=== PATIENT | male | born 1945 | race Caucasian/White ===

== ENCOUNTER 2020-06-11 18:02 | Inpatient (IN) | payer OTHER ==
[2020-06-11] VITALS (7 sets, daily range): BP systolic 81–98
[~2020-06-11] VITALS: Ht 167.6 cm; Wt 65.8 kg
[2020-06-11] MEDS ORDERED: PIPERACILLIN/TAZO 3.375 GM in NS 50 ML IV ONE (18:45)
[2020-06-11] MEDS ORDERED: VANCOMYCIN HCL 1,000 MG in NS 250 ML IV ONE (18:45)
[2020-06-11] MEDS ORDERED: PIPERACILLIN/TAZOBACTAM 3.375 GM/VIAL (ZOSYN) IV ONE ×2 (18:53)
[2020-06-11 19:03] LABS: HEMATOCRIT 27.2 % (36-54); HEMOGLOBIN 8.2 g/dL (14.0-18.0); MEAN CORPUSCULAR HEMOGLOBIN 26 pg (27-31); MEAN CORPUSCULAR HGB CONC 30 % (32-36); MEAN CORPUSCULAR VOLUME 87 fL (79.0-98.0); PLATELET COUNT (AUTO) 232 K/uL (130-430); RED BLOOD CELL COUNT(AUTO) 3.11 MIL/uL (4.2-6.2); RED CELL DISTRIBUTION WIDTH 19.6 % (9.0-15.0); WHITE BLOOD COUNT (AUTO) 20.2 K/uL (4.8-10.8)
[2020-06-11] MEDS ORDERED: NACL 0.9% 2,000 ML IV ONE (19:15)
[2020-06-11] MEDS ORDERED: VANCOMYCIN HCL 1000 MG/VIAL IV ONE ×2 (19:24)
[2020-06-11 19:25] LABS: INR 1.1 (0.80-1.20); PROTHROMBIN TIME 11.1 SECS (9.5-12.5)
[2020-06-11] MEDS ORDERED: NOREPINEPHRINE BITARTRATE 4 MG in NS 246 ML IV ONE ×2 (19:30→20:00)
[2020-06-11 19:35] LABS: BAND % (MANUAL) 4 % (0-6); BASOPHILS % (MANUAL) 0 % (0-2); EOSINOPHILS % (MANUAL) 0 % (0-7); LYMPHOCYTES % (MANUAL) 4 % (20-46); MONOCYTES % (MANUAL) 6 % (0-11)
[2020-06-11 19:51] LABS: CHLORIDE 103 mmol/L (98-107); SODIUM SERUM 143 mmol/L (136-145)
[2020-06-11 19:52] LABS: CALCIUM 9.7 mg/dL (8.4-11.0); GLUCOSE 138 mg/dL (70-99)
[2020-06-11 19:53] LABS: ALANINE AMINOTRANSFERASE 22 U/L (12-78); ALBUMIN 1.7 g/dL (3.4-4.8); ASPARTATE AMINOTRANSFERASE 14 U/L (10-37); CREATININE 1.13 mg/dL (0.55-1.30); TOTAL BILIRUBIN 0.5 mg/dL (0.0-1.0); UREA NITROGEN, BLOOD 124 mg/dL (8-21)
[2020-06-11 19:54] LABS: POTASSIUM 5.9 mmol/L (3.5-5.1)
[2020-06-11 19:55] LABS: ANION GAP 3 (5-15)
[2020-06-11] MEDS ORDERED: RILU50TA13 GT (20:08)
[2020-06-11] MEDS ORDERED: FERR220S6 GT (20:08)
[2020-06-11] MEDS ORDERED: INSU100V46 (20:08)
[2020-06-11] MEDS ORDERED: ASA81 GT (20:08)
[2020-06-11] MEDS ORDERED: GUAI100S14 GT (20:08)
[2020-06-11] MEDS ORDERED: LACT1CAP69 GT (20:08)
[2020-06-11] MEDS ORDERED: PRO40 GT (20:08)
[2020-06-11] MEDS ORDERED: ACET325C6 GT (20:08)
[2020-06-11] MEDS ORDERED: MELA1LIQ GT (20:08)
[2020-06-11] MEDS ORDERED: ASCO500T20 GT (20:08)
[2020-06-11] MEDS ORDERED: BUDE0.5A INH (20:08)
[2020-06-11] MEDS ORDERED: NOREPINEPHRINE 4 MG/4 ML VIAL IV ONE (20:10)
[2020-06-11] MEDS: D5NS 1,000 ML IV SCH (20:27)
[2020-06-11] MEDS ORDERED: SODIUM POLYSTYRENE SULFONATE 15 GM/60 ML UDBTL PO ONE (20:30)
[2020-06-11] MEDS ORDERED: SODIUM BICARBONATE 8.4% JECT 50 MEQ/50 ML SYRINGE IVP ONE (20:30)
[2020-06-11] MEDS ORDERED: INSULIN REGULAR, HUMAN 10 UNITS/0.1 ML INJ IVP ONE (20:30)
[2020-06-11] MEDS ORDERED: DEXTROSE 50% JECT 50 ML DISP.SYRIN IVP ONE (20:30)
[2020-06-11] MEDS ORDERED: INSULIN REGULAR, HUMAN 100 UNITS/ML, 10 ML VIAL (humuLIN R) SUBCUT PRN (23:30)
[2020-06-11] MEDS ORDERED: ONDANSETRON HCL 4 MG/2 ML VIAL IVP PRN (23:45)
[2020-06-12] VITALS (34 sets, daily range): BP systolic 89–143
[2020-06-12] MEDS ORDERED: NOREPINEPHRINE BITARTRATE 4 MG in NS 246 ML IV PRN ×2
[2020-06-12 00:18] LABS: INR 1.1 (0.80-1.20); PROTHROMBIN TIME 10.9 SECS (9.5-12.5)
[2020-06-12] MEDS ORDERED: PIPERACILLIN/TAZOBACTAM 3.375 GM/VIAL (ZOSYN) IV ONE (00:31)
[2020-06-12] MEDS: PIPERACILLIN/TAZO 3.375/DEX-IS 50 ML IV SCH ×5 (00:44→23:16)
[2020-06-12] MEDS ORDERED: ZOSYN (PIPERACILLIN/TAZO) 3.375 GM in DEX-ISO (50ml) IV ONE (01:00)
[2020-06-12] MEDS ORDERED: NOREPINEPHRINE 4 MG/4 ML VIAL IV ONE (03:40)
[2020-06-12] MEDS: D5NS 1,000 ML IV SCH ×4 (03:42→23:37)
[2020-06-12 05:39] LABS: CALCIUM 8.6 mg/dL (8.4-11.0); CHLORIDE 106 mmol/L (98-107); CREATININE 1.14 mg/dL (0.55-1.30); GLUCOSE 158 mg/dL (70-99); POTASSIUM 4.9 mmol/L (3.5-5.1); SODIUM SERUM 147 mmol/L (136-145)
[2020-06-12 05:48] LABS: HEMATOCRIT 25.3 % (36-54); HEMOGLOBIN 7.5 g/dL (14.0-18.0); MEAN CORPUSCULAR HEMOGLOBIN 26 pg (27-31); MEAN CORPUSCULAR HGB CONC 29 % (32-36); MEAN CORPUSCULAR VOLUME 88 fL (79.0-98.0); PLATELET COUNT (AUTO) 253 K/uL (130-430); RED BLOOD CELL COUNT(AUTO) 2.87 MIL/uL (4.2-6.2); RED CELL DISTRIBUTION WIDTH 19.5 % (9.0-15.0); WHITE BLOOD COUNT (AUTO) 17.1 K/uL (4.8-10.8)
[2020-06-12 06:01] LABS: ANION GAP < 3 (5-15); UREA NITROGEN, BLOOD 118 mg/dL (8-21)
[2020-06-12 06:14] LABS: BAND % (MANUAL) 8 % (0-6); BASOPHILS % (MANUAL) 0 % (0-2); EOSINOPHILS % (MANUAL) 0 % (0-7); LYMPHOCYTES % (MANUAL) 1 % (20-46); MONOCYTES % (MANUAL) 1 % (0-11)
[2020-06-12 06:15] LABS: METAMYELOCYTES % 4 % (0-0); MYELOCYTES % 3 % (0-0)
[2020-06-12] MEDS: BUDESONIDE 0.5 MG/2 ML AMPUL.NEB INH SCH ×2 (07:10→20:05)
[2020-06-12] MEDS: ASPIRIN 81 MG TAB.CHEW GT SCH (08:28)
[2020-06-12] MEDS: LACTOBACILLUS RHAMNOSUS GG 1 CAP CAPSULE GT SCH ×2 (08:28→20:21)
[2020-06-12] MEDS: FERROUS SULFATE 300 MG/5 ML UDC GT SCH (08:28)
[2020-06-12] MEDS: LANSOPRAZOLE 30 MG CAPSULE.DR GT SCH (08:28)
[2020-06-12] MEDS ORDERED: ASCORBIC ACID 500 MG TABLET GT SCH (09:00)
[2020-06-12] MEDS ORDERED: RILUZOLE 50 MG TABLET GT SCH (09:00)
[2020-06-12] MEDS ORDERED: LACTOBACILLUS ACIDOPHILUS GT SCH (09:00)
[2020-06-12] MEDS ORDERED: NON-FORMULARY MEDICATION (Ferrous Sulfate 7.5 ML) GT SCH (09:00)
[2020-06-12] MEDS ORDERED: ASCORBIC ACID 500 MG TABLET GT ONE (10:15)
[2020-06-12] MEDS: FLUCONAZOLE 100 mg/ NS 50 ML IV SCH (12:48)
[2020-06-12] MEDS: ACETAMINOPHEN 650 MG/20.3 ML UDC GT PRN (18:18)
[2020-06-12] MEDS ORDERED: VANCOMYCIN HCL 1,000 MG in NS 250 ML IV SCH (20:00)
[2020-06-12] MEDS: MELATONIN 3 MG TABLET GT SCH (20:21)
[2020-06-12] MEDS ORDERED: MELATONIN GT SCH (21:00)
[2020-06-12 23:03] LABS: BILIRUBIN,URINE NEGATIVE (NEGATIVE); BLOOD, URINE 3+ (NEGATIVE); CLARITY/URINE TURBID (CLEAR); COLOR,URINE YELLOW (YELLOW); GLUCOSE,URINE NEGATIVE (NEGATIVE); KETONES,URINE NEGATIVE (NEGATIVE); LEUKOCYTE ESTERASE ,URINE 1+ (NEGATIVE); NITRITE, URINE NEGATIVE (NEGATIVE); PH,URINE 5.5 (5.0-8.0); PROTEIN URINE 2+ (NEGATIVE)
[2020-06-13] VITALS (35 sets, daily range): BP systolic 105–146
[2020-06-13 00:05] LABS: BACTERIA,URINE FEW /HPF (None Seen); FINE GRANULAR CASTS,URINE 0-10 /LPF (None Seen); RBC,URINE 20-50 /HPF (0-3)
[2020-06-13] MEDS: D5NS 1,000 ML IV SCH (03:01)
[2020-06-13] MEDS: PIPERACILLIN/TAZO 3.375/DEX-IS 50 ML IV SCH ×3 (05:18→17:21)
[2020-06-13 05:53] LABS: BASOPHILS % (AUTO) 0.1 % (0.0-2.0); EOSINOPHILS % (AUTO) 6.6 % (0.0-4.0); HEMATOCRIT 22.2 % (36-54); LYMPHOCYTES # (AUTO) 0.5 K/uL (1.0-5.5); LYMPHOCYTES % (AUTO) 3.5 % (20.5-51.5); MEAN CORPUSCULAR HEMOGLOBIN 26 pg (27-31); MEAN CORPUSCULAR HGB CONC 31 % (32-36); MEAN CORPUSCULAR VOLUME 83 fL (79.0-98.0); MONOCYTES # (AUTO) 0.3 K/uL (0.0-1.0); MONOCYTES % (AUTO) 1.9 % (1.7-9.3); NEUTROPHILS % (AUTO) 87.9 % (40.0-70.0); PLATELET COUNT (AUTO) 216 K/uL (130-430); RED BLOOD CELL COUNT(AUTO) 2.67 MIL/uL (4.2-6.2); RED CELL DISTRIBUTION WIDTH 19.4 % (9.0-15.0); WHITE BLOOD COUNT (AUTO) 14.7 K/uL (4.8-10.8)
[2020-06-13 05:55] LABS: ANION GAP 5 (5-15); CALCIUM 8.3 mg/dL (8.4-11.0); CHLORIDE 108 mmol/L (98-107); CREATININE 1.07 mg/dL (0.55-1.30); GLUCOSE 153 mg/dL (70-99); POTASSIUM 3.6 mmol/L (3.5-5.1); SODIUM SERUM 152 mmol/L (136-145)
[2020-06-13 05:58] LABS: UREA NITROGEN, BLOOD 114 mg/dL (8-21)
[2020-06-13 06:45] LABS: HEMOGLOBIN 6.9 g/dL (14.0-18.0)
[2020-06-13] MEDS: BUDESONIDE 0.5 MG/2 ML AMPUL.NEB INH SCH ×2 (07:10→20:03)
[2020-06-13] MEDS: FERROUS SULFATE 300 MG/5 ML UDC GT SCH (08:29)
[2020-06-13] MEDS: ASCORBIC ACID 500 MG TABLET GT SCH (08:30)
[2020-06-13] MEDS: ASPIRIN 81 MG TAB.CHEW GT SCH (08:30)
[2020-06-13] MEDS: LACTOBACILLUS RHAMNOSUS GG 1 CAP CAPSULE GT SCH ×2 (08:30→20:26)
[2020-06-13] MEDS: LANSOPRAZOLE 30 MG CAPSULE.DR GT SCH (08:30)
[2020-06-13 10:38] LABS: TOTAL IRON BIND. CAPACITY 165 ug/dL (250-450)
[2020-06-13] MEDS: FLUCONAZOLE 100 mg/ NS 50 ML IV SCH (11:50)
[2020-06-13] MEDS: 0.45% NACL 1,000 ML IV SCH (12:05)
[2020-06-13] MEDS: SOD FERRIC GLUC COMPLEX/SUC 125 MG in NS 100 ML IV SCH (17:46)
[2020-06-13] MEDS: MELATONIN 3 MG TABLET GT SCH (20:27)
[2020-06-14] VITALS (35 sets, daily range): BP systolic 103–126
[2020-06-14] MEDS: PIPERACILLIN/TAZO 3.375/DEX-IS 50 ML IV SCH ×4 (00:11→17:40)
[2020-06-14 05:18] LABS: BASOPHILS % (AUTO) 0.3 % (0.0-2.0); EOSINOPHILS # (AUTO) 0.7 K/uL (0.0-0.4); EOSINOPHILS % (AUTO) 6.6 % (0.0-4.0); HEMATOCRIT 26.1 % (36-54); HEMOGLOBIN 8.4 g/dL (14.0-18.0); LYMPHOCYTES # (AUTO) 0.5 K/uL (1.0-5.5); LYMPHOCYTES % (AUTO) 4.3 % (20.5-51.5); MEAN CORPUSCULAR HEMOGLOBIN 27 pg (27-31); MEAN CORPUSCULAR HGB CONC 32 % (32-36); MEAN CORPUSCULAR VOLUME 83 fL (79.0-98.0); MONOCYTES # (AUTO) 0.2 K/uL (0.0-1.0); MONOCYTES % (AUTO) 2.2 % (1.7-9.3); NEUTROPHILS # (AUTO) 9.7 K/uL (1.8-7.7); NEUTROPHILS % (AUTO) 86.6 % (40.0-70.0); PLATELET COUNT (AUTO) 185 K/uL (130-430); RED BLOOD CELL COUNT(AUTO) 3.14 MIL/uL (4.2-6.2); RED CELL DISTRIBUTION WIDTH 17.9 % (9.0-15.0); WHITE BLOOD COUNT (AUTO) 11.2 K/uL (4.8-10.8)
[2020-06-14 05:27] LABS: ALANINE AMINOTRANSFERASE 20 U/L (12-78); ALBUMIN 1.2 g/dL (3.4-4.8); ANION GAP 3 (5-15); ASPARTATE AMINOTRANSFERASE 15 U/L (10-37); CALCIUM 7.7 mg/dL (8.4-11.0); CHLORIDE 108 mmol/L (98-107); CREATININE 0.94 mg/dL (0.55-1.30); GLUCOSE 102 mg/dL (70-99); POTASSIUM 3.3 mmol/L (3.5-5.1); SODIUM SERUM 149 mmol/L (136-145); TOTAL BILIRUBIN 0.7 mg/dL (0.0-1.0)
[2020-06-14 05:32] LABS: UREA NITROGEN, BLOOD 96 mg/dL (8-21)
[2020-06-14] MEDS ORDERED: POTASSIUM CHLORIDE 20 MEQ/PKT PACKET PO ONE ×2 (07:00→09:45)
[2020-06-14] MEDS: BUDESONIDE 0.5 MG/2 ML AMPUL.NEB INH SCH ×2 (07:38→19:12)
[2020-06-14] MEDS: 0.45% NACL 1,000 ML IV SCH (07:53)
[2020-06-14] MEDS: FERROUS SULFATE 300 MG/5 ML UDC GT SCH (08:08)
[2020-06-14] MEDS: ASCORBIC ACID 500 MG TABLET GT SCH (08:09)
[2020-06-14] MEDS: ASPIRIN 81 MG TAB.CHEW GT SCH (08:09)
[2020-06-14] MEDS: LACTOBACILLUS RHAMNOSUS GG 1 CAP CAPSULE GT SCH ×2 (08:09→21:11)
[2020-06-14] MEDS: LANSOPRAZOLE 30 MG CAPSULE.DR GT SCH (08:10)
[2020-06-14] MEDS ORDERED: FUROSEMIDE 20 MG/2 ML VIAL IVP ONE (09:45)
[2020-06-14] MEDS: D5W 1,000 ML IV SCH (09:50)
[2020-06-14] MEDS: FLUCONAZOLE 100 mg/ NS 50 ML IV SCH (12:28)
[2020-06-14] MEDS: ACETAMINOPHEN 650 MG/20.3 ML UDC GT PRN (16:40)
[2020-06-14] MEDS: SOD FERRIC GLUC COMPLEX/SUC 125 MG in NS 100 ML IV SCH (17:40)
[2020-06-14] MEDS: RILUZOLE 50 MG TABLET GT SCH (21:11)
[2020-06-14] MEDS: MELATONIN 3 MG TABLET GT SCH (21:11)
[2020-06-15] VITALS (35 sets, daily range): BP systolic 103–133
[2020-06-15] MEDS: PIPERACILLIN/TAZO 3.375/DEX-IS 50 ML IV SCH ×5 (00:46→23:55)
[2020-06-15] MEDS: D5W 1,000 ML IV SCH ×2 (05:45→08:56)
[2020-06-15 06:37] LABS: BASOPHILS % (AUTO) 0.1 % (0.0-2.0); EOSINOPHILS # (AUTO) 0.5 K/uL (0.0-0.4); EOSINOPHILS % (AUTO) 3.3 % (0.0-4.0); HEMATOCRIT 27.5 % (36-54); HEMOGLOBIN 8.7 g/dL (14.0-18.0); LYMPHOCYTES # (AUTO) 0.5 K/uL (1.0-5.5); LYMPHOCYTES % (AUTO) 3.2 % (20.5-51.5); MEAN CORPUSCULAR HEMOGLOBIN 27 pg (27-31); MEAN CORPUSCULAR HGB CONC 32 % (32-36); MEAN CORPUSCULAR VOLUME 84 fL (79.0-98.0); MONOCYTES # (AUTO) 0.3 K/uL (0.0-1.0); MONOCYTES % (AUTO) 1.8 % (1.7-9.3); NEUTROPHILS # (AUTO) 13.6 K/uL (1.8-7.7); NEUTROPHILS % (AUTO) 91.6 % (40.0-70.0); PLATELET COUNT (AUTO) 195 K/uL (130-430); RED BLOOD CELL COUNT(AUTO) 3.29 MIL/uL (4.2-6.2); RED CELL DISTRIBUTION WIDTH 18.7 % (9.0-15.0); WHITE BLOOD COUNT (AUTO) 14.8 K/uL (4.8-10.8)
[2020-06-15 07:03] LABS: ALANINE AMINOTRANSFERASE 18 U/L (12-78); ALBUMIN 1.4 g/dL (3.4-4.8); ANION GAP 3 (5-15); ASPARTATE AMINOTRANSFERASE 12 U/L (10-37); CALCIUM 8.6 mg/dL (8.4-11.0); CHLORIDE 110 mmol/L (98-107); CREATININE 0.89 mg/dL (0.55-1.30); GLUCOSE 128 mg/dL (70-99); POTASSIUM 3.8 mmol/L (3.5-5.1); SODIUM SERUM 151 mmol/L (136-145); TOTAL BILIRUBIN 0.9 mg/dL (0.0-1.0); UREA NITROGEN, BLOOD 88 mg/dL (8-21)
[2020-06-15] MEDS: BUDESONIDE 0.5 MG/2 ML AMPUL.NEB INH SCH ×2 (07:38→19:37)
[2020-06-15] MEDS: LACTOBACILLUS RHAMNOSUS GG 1 CAP CAPSULE GT SCH ×2 (08:54→21:04)
[2020-06-15] MEDS: ASCORBIC ACID 500 MG TABLET GT SCH (08:54)
[2020-06-15] MEDS: FERROUS SULFATE 300 MG/5 ML UDC GT SCH (08:54)
[2020-06-15] MEDS: LANSOPRAZOLE 30 MG CAPSULE.DR GT SCH (08:54)
[2020-06-15] MEDS: ASPIRIN 81 MG TAB.CHEW GT SCH (08:54)
[2020-06-15] MEDS: RILUZOLE 50 MG TABLET GT SCH ×2 (08:56→21:05)
[2020-06-15] MEDS: FLUCONAZOLE 100 mg/ NS 50 ML IV SCH (12:07)
[2020-06-15] MEDS: ACETAMINOPHEN 650 MG/20.3 ML UDC GT PRN (12:16)
[2020-06-15] MEDS: SOD FERRIC GLUC COMPLEX/SUC 125 MG in NS 100 ML IV SCH (17:28)
[2020-06-15] MEDS: MELATONIN 3 MG TABLET GT SCH (21:05)
[2020-06-16] VITALS (35 sets, daily range): BP systolic 96–182
[2020-06-16] MEDS ORDERED: NOREPINEPHRINE 4 MG/4 ML VIAL IV ONE (06:15)
[2020-06-16] MEDS: PIPERACILLIN/TAZO 3.375/DEX-IS 50 ML IV SCH ×3 (06:40→17:03)
[2020-06-16] MEDS: BUDESONIDE 0.5 MG/2 ML AMPUL.NEB INH SCH ×2 (07:40→19:26)
[2020-06-16 08:07] LABS: HEMOGLOBIN 9.2 g/dL (14.0-18.0); MEAN CORPUSCULAR HEMOGLOBIN 26 pg (27-31); MEAN CORPUSCULAR HGB CONC 31 % (32-36); MEAN CORPUSCULAR VOLUME 86 fL (79.0-98.0); PLATELET COUNT (AUTO) 230 K/uL (130-430); RED BLOOD CELL COUNT(AUTO) 3.51 MIL/uL (4.2-6.2)
[2020-06-16 08:38] LABS: ALANINE AMINOTRANSFERASE 20 U/L (12-78); ALBUMIN 1.6 g/dL (3.4-4.8); ANION GAP 6 (5-15); ASPARTATE AMINOTRANSFERASE 16 U/L (10-37); CHLORIDE 109 mmol/L (98-107); CREATININE 0.95 mg/dL (0.55-1.30); GLUCOSE 165 mg/dL (70-99); POTASSIUM 3.9 mmol/L (3.5-5.1); SODIUM SERUM 152 mmol/L (136-145); TOTAL BILIRUBIN 0.8 mg/dL (0.0-1.0); UREA NITROGEN, BLOOD 76 mg/dL (8-21)
[2020-06-16 08:52] LABS: WHITE BLOOD COUNT (AUTO) 33.2 K/uL (4.8-10.8)
[2020-06-16] MEDS: ASPIRIN 81 MG TAB.CHEW GT SCH (09:41)
[2020-06-16] MEDS: LANSOPRAZOLE 30 MG CAPSULE.DR GT SCH (09:41)
[2020-06-16] MEDS: ACETAMINOPHEN 650 MG/20.3 ML UDC GT PRN (09:41)
[2020-06-16] MEDS: LACTOBACILLUS RHAMNOSUS GG 1 CAP CAPSULE GT SCH ×2 (09:41→21:06)
[2020-06-16] MEDS: ASCORBIC ACID 500 MG TABLET GT SCH (09:41)
[2020-06-16] MEDS: FERROUS SULFATE 300 MG/5 ML UDC GT SCH (09:41)
[2020-06-16] MEDS: RILUZOLE 50 MG TABLET GT SCH ×2 (09:42→21:06)
[2020-06-16 11:47] LABS: BAND % (MANUAL) 15 % (0-6); LYMPHOCYTES % (MANUAL) 1 % (20-46)
[2020-06-16 11:48] LABS: BASOPHILS % (MANUAL) 0 % (0-2); EOSINOPHILS % (MANUAL) 0 % (0-7); MONOCYTES % (MANUAL) 4 % (0-11)
[2020-06-16] MEDS: FLUCONAZOLE 100 mg/ NS 50 ML IV SCH (12:08)
[2020-06-16] MEDS ORDERED: FUROSEMIDE 40 MG/4 ML VIAL IVP ONE (15:45)
[2020-06-16] MEDS ORDERED: ALBUMIN HUMAN 25% 200 ML IV ONE ×2 (15:45)
[2020-06-16] MEDS ORDERED: FUROSEMIDE 40 MG/4 ML VIAL ONE (15:46)
[2020-06-16] MEDS: SOD FERRIC GLUC COMPLEX/SUC 125 MG in NS 100 ML IV SCH (17:03)
[2020-06-16] MEDS: MELATONIN 3 MG TABLET GT SCH (21:06)
[2020-06-16] MEDS: D5W 1,000 ML IV SCH (21:06)
[2020-06-17] VITALS (36 sets, daily range): BP systolic 113–143
[2020-06-17 06:16] LABS: BASOPHILS % (AUTO) 0.2 % (0.0-2.0); EOSINOPHILS # (AUTO) 0.3 K/uL (0.0-0.4); EOSINOPHILS % (AUTO) 1.8 % (0.0-4.0); HEMATOCRIT 22.1 % (36-54); LYMPHOCYTES # (AUTO) 0.5 K/uL (1.0-5.5); MEAN CORPUSCULAR HEMOGLOBIN 27 pg (27-31); MEAN CORPUSCULAR HGB CONC 31 % (32-36); MEAN CORPUSCULAR VOLUME 85 fL (79.0-98.0); MONOCYTES # (AUTO) 0.3 K/uL (0.0-1.0); PLATELET COUNT (AUTO) 168 K/uL (130-430); RED CELL DISTRIBUTION WIDTH 18.7 % (9.0-15.0); WHITE BLOOD COUNT (AUTO) 17.2 K/uL (4.8-10.8)
[2020-06-17] MEDS: PIPERACILLIN/TAZO 3.375/DEX-IS 50 ML IV SCH ×2 (06:24)
[2020-06-17 06:38] LABS: ALANINE AMINOTRANSFERASE 21 U/L (12-78); ALBUMIN 1.8 g/dL (3.4-4.8); ANION GAP 4 (5-15); ASPARTATE AMINOTRANSFERASE 12 U/L (10-37); CALCIUM 8.1 mg/dL (8.4-11.0); CHLORIDE 103 mmol/L (98-107); CREATININE 0.94 mg/dL (0.55-1.30); GLUCOSE 322 mg/dL (70-99); POTASSIUM 3.7 mmol/L (3.5-5.1); SODIUM SERUM 143 mmol/L (136-145); TOTAL BILIRUBIN 0.8 mg/dL (0.0-1.0); UREA NITROGEN, BLOOD 65 mg/dL (8-21)
[2020-06-17 07:46] LABS: HEMOGLOBIN 6.9 g/dL (14.0-18.0)
[2020-06-17] MEDS: BUDESONIDE 0.5 MG/2 ML AMPUL.NEB INH SCH ×2 (08:12→19:45)
[2020-06-17] MEDS: ASCORBIC ACID 500 MG TABLET GT SCH (08:18)
[2020-06-17] MEDS: RILUZOLE 50 MG TABLET GT SCH ×2 (08:18→20:29)
[2020-06-17] MEDS: FERROUS SULFATE 300 MG/5 ML UDC GT SCH (08:18)
[2020-06-17] MEDS: LANSOPRAZOLE 30 MG CAPSULE.DR GT SCH (08:18)
[2020-06-17] MEDS: ASPIRIN 81 MG TAB.CHEW GT SCH (08:18)
[2020-06-17] MEDS: LACTOBACILLUS RHAMNOSUS GG 1 CAP CAPSULE GT SCH ×2 (08:18→20:29)
[2020-06-17] MEDS ORDERED: TOBRAMYCIN 300MG/5ML INH AMPUL.NEB INH ONE (10:00)
[2020-06-17] MEDS: LEVOFLOXACIN 250 MG/D5W 50 ML IV SCH (11:32)
[2020-06-17] MEDS: FLUCONAZOLE 100 mg/ NS 50 ML IV SCH (12:45)
[2020-06-17] MEDS: SOD FERRIC GLUC COMPLEX/SUC 125 MG in NS 100 ML IV SCH (17:03)
[2020-06-17] MEDS: D5W 1,000 ML IV SCH (17:04)
[2020-06-17] MEDS: TOBRAMYCIN 300MG/5ML INH AMPUL.NEB INH SCH (19:44)
[2020-06-17] MEDS: MELATONIN 3 MG TABLET GT SCH (20:29)
[2020-06-18] VITALS (36 sets, daily range): BP systolic 107–153
[2020-06-18 06:15] LABS: BASOPHILS % (AUTO) 0.3 % (0.0-2.0); EOSINOPHILS # (AUTO) 0.3 K/uL (0.0-0.4); EOSINOPHILS % (AUTO) 2.2 % (0.0-4.0); HEMATOCRIT 27.3 % (36-54); HEMOGLOBIN 8.8 g/dL (14.0-18.0); LYMPHOCYTES # (AUTO) 0.6 K/uL (1.0-5.5); LYMPHOCYTES % (AUTO) 4.1 % (20.5-51.5); MEAN CORPUSCULAR HEMOGLOBIN 28 pg (27-31); MEAN CORPUSCULAR HGB CONC 32 % (32-36); MEAN CORPUSCULAR VOLUME 86 fL (79.0-98.0); MONOCYTES # (AUTO) 0.3 K/uL (0.0-1.0); MONOCYTES % (AUTO) 2.2 % (1.7-9.3); NEUTROPHILS # (AUTO) 13.2 K/uL (1.8-7.7); NEUTROPHILS % (AUTO) 91.2 % (40.0-70.0); PLATELET COUNT (AUTO) 165 K/uL (130-430); RED BLOOD CELL COUNT(AUTO) 3.19 MIL/uL (4.2-6.2); RED CELL DISTRIBUTION WIDTH 17.4 % (9.0-15.0); WHITE BLOOD COUNT (AUTO) 14.4 K/uL (4.8-10.8)
[2020-06-18] MEDS: BUDESONIDE 0.5 MG/2 ML AMPUL.NEB INH SCH ×2 (07:16→19:21)
[2020-06-18 07:37] LABS: ANION GAP 1 (5-15); CALCIUM 7.9 mg/dL (8.4-11.0); CHLORIDE 101 mmol/L (98-107); SODIUM SERUM 137 mmol/L (136-145); UREA NITROGEN, BLOOD 57 mg/dL (8-21)
[2020-06-18] MEDS: TOBRAMYCIN 300MG/5ML INH AMPUL.NEB INH SCH ×2 (07:38→19:21)
[2020-06-18 08:02] LABS: GLUCOSE 405 mg/dL (70-99)
[2020-06-18] MEDS: FERROUS SULFATE 300 MG/5 ML UDC GT SCH (09:28)
[2020-06-18] MEDS: ASCORBIC ACID 500 MG TABLET GT SCH (09:28)
[2020-06-18] MEDS: LANSOPRAZOLE 30 MG CAPSULE.DR GT SCH (09:28)
[2020-06-18] MEDS: RILUZOLE 50 MG TABLET GT SCH ×2 (09:28→20:34)
[2020-06-18] MEDS: LACTOBACILLUS RHAMNOSUS GG 1 CAP CAPSULE GT SCH ×2 (09:28→20:34)
[2020-06-18] MEDS: ASPIRIN 81 MG TAB.CHEW GT SCH (09:28)
[2020-06-18] MEDS: LEVOFLOXACIN 250 MG/D5W 50 ML IV SCH (09:29)
[2020-06-18] MEDS: FLUCONAZOLE 100 mg/ NS 50 ML IV SCH (11:53)
[2020-06-18] MEDS: D5W 1,000 ML IV SCH (15:22)
[2020-06-18] MEDS: SOD FERRIC GLUC COMPLEX/SUC 125 MG in NS 100 ML IV SCH (17:55)
[2020-06-18] MEDS: MELATONIN 3 MG TABLET GT SCH (20:34)
[2020-06-18] MEDS: NACL 0.9% 1,000 ML IV SCH (20:57)
[2020-06-18] MEDS: INSULIN NPH 100 UNITS/ML 10 ML VIAL SUBCUT SCH (21:01)
[2020-06-19] VITALS (35 sets, daily range): BP systolic 115–143
[2020-06-19] MEDS: INSULIN NPH 100 UNITS/ML 10 ML VIAL SUBCUT SCH ×2 (06:29→17:00)
[2020-06-19] MEDS: BUDESONIDE 0.5 MG/2 ML AMPUL.NEB INH SCH ×2 (07:11→20:03)
[2020-06-19] MEDS: TOBRAMYCIN 300MG/5ML INH AMPUL.NEB INH SCH ×2 (08:05→20:03)
[2020-06-19 08:09] LABS: BASOPHILS # (AUTO) 0.1 K/uL (0.0-0.2); BASOPHILS % (AUTO) 0.5 % (0.0-2.0); EOSINOPHILS # (AUTO) 0.3 K/uL (0.0-0.4); EOSINOPHILS % (AUTO) 2.6 % (0.0-4.0); HEMATOCRIT 25.9 % (36-54); HEMOGLOBIN 8.4 g/dL (14.0-18.0); LYMPHOCYTES # (AUTO) 0.5 K/uL (1.0-5.5); LYMPHOCYTES % (AUTO) 4.6 % (20.5-51.5); MEAN CORPUSCULAR HEMOGLOBIN 28 pg (27-31); MEAN CORPUSCULAR HGB CONC 32 % (32-36); MEAN CORPUSCULAR VOLUME 86 fL (79.0-98.0); MONOCYTES # (AUTO) 0.3 K/uL (0.0-1.0); NEUTROPHILS # (AUTO) 9.8 K/uL (1.8-7.7); NEUTROPHILS % (AUTO) 89.3 % (40.0-70.0); PLATELET COUNT (AUTO) 177 K/uL (130-430); RED BLOOD CELL COUNT(AUTO) 3.02 MIL/uL (4.2-6.2); RED CELL DISTRIBUTION WIDTH 17.8 % (9.0-15.0)
[2020-06-19 08:24] LABS: ANION GAP 4 (5-15); CALCIUM 8.5 mg/dL (8.4-11.0); CHLORIDE 107 mmol/L (98-107); CREATININE 0.75 mg/dL (0.55-1.30); GLUCOSE 103 mg/dL (70-99); POTASSIUM 4.7 mmol/L (3.5-5.1); SODIUM SERUM 145 mmol/L (136-145); UREA NITROGEN, BLOOD 56 mg/dL (8-21)
[2020-06-19] MEDS: LEVOFLOXACIN 250 MG/D5W 50 ML IV SCH (09:29)
[2020-06-19] MEDS: FERROUS SULFATE 300 MG/5 ML UDC GT SCH (09:29)
[2020-06-19] MEDS: ASPIRIN 81 MG TAB.CHEW GT SCH (09:29)
[2020-06-19] MEDS: LACTOBACILLUS RHAMNOSUS GG 1 CAP CAPSULE GT SCH ×2 (09:29→20:29)
[2020-06-19] MEDS: LANSOPRAZOLE 30 MG CAPSULE.DR GT SCH (09:29)
[2020-06-19] MEDS: ASCORBIC ACID 500 MG TABLET GT SCH (09:29)
[2020-06-19] MEDS: RILUZOLE 50 MG TABLET GT SCH ×2 (09:30→20:28)
[2020-06-19] MEDS: NACL 0.9% 1,000 ML IV SCH (13:56)
[2020-06-19] MEDS: SOD FERRIC GLUC COMPLEX/SUC 125 MG in NS 100 ML IV SCH (17:18)
[2020-06-19] MEDS: MELATONIN 3 MG TABLET GT SCH (20:28)
[2020-06-20] VITALS (35 sets, daily range): BP systolic 104–151
[2020-06-20] MEDS: NACL 0.9% 1,000 ML IV SCH ×2 (05:12→22:57)
[2020-06-20] MEDS: INSULIN NPH 100 UNITS/ML 10 ML VIAL SUBCUT SCH ×2 (06:08→17:00)
[2020-06-20 06:48] LABS: BASOPHILS # (AUTO) 0.1 K/uL (0.0-0.2); BASOPHILS % (AUTO) 1.1 % (0.0-2.0); EOSINOPHILS # (AUTO) 0.3 K/uL (0.0-0.4); EOSINOPHILS % (AUTO) 3.1 % (0.0-4.0); HEMATOCRIT 24.4 % (36-54); HEMOGLOBIN 7.9 g/dL (14.0-18.0); LYMPHOCYTES # (AUTO) 0.6 K/uL (1.0-5.5); LYMPHOCYTES % (AUTO) 7.5 % (20.5-51.5); MEAN CORPUSCULAR HEMOGLOBIN 29 pg (27-31); MEAN CORPUSCULAR HGB CONC 32 % (32-36); MEAN CORPUSCULAR VOLUME 88 fL (79.0-98.0); MONOCYTES # (AUTO) 0.4 K/uL (0.0-1.0); MONOCYTES % (AUTO) 4.5 % (1.7-9.3); NEUTROPHILS # (AUTO) 7.2 K/uL (1.8-7.7); NEUTROPHILS % (AUTO) 83.8 % (40.0-70.0); PLATELET COUNT (AUTO) 193 K/uL (130-430); RED BLOOD CELL COUNT(AUTO) 2.76 MIL/uL (4.2-6.2); RED CELL DISTRIBUTION WIDTH 18.4 % (9.0-15.0); WHITE BLOOD COUNT (AUTO) 8.5 K/uL (4.8-10.8)
[2020-06-20 07:11] LABS: ANION GAP 5 (5-15); CALCIUM 7.9 mg/dL (8.4-11.0); CHLORIDE 110 mmol/L (98-107); CREATININE 0.69 mg/dL (0.55-1.30); GLUCOSE 107 mg/dL (70-99); POTASSIUM 4.4 mmol/L (3.5-5.1); SODIUM SERUM 146 mmol/L (136-145); UREA NITROGEN, BLOOD 47 mg/dL (8-21)
[2020-06-20] MEDS: BUDESONIDE 0.5 MG/2 ML AMPUL.NEB INH SCH ×2 (07:14→19:26)
[2020-06-20] MEDS: TOBRAMYCIN 300MG/5ML INH AMPUL.NEB INH SCH ×2 (07:15→19:40)
[2020-06-20] MEDS: LEVOFLOXACIN 250 MG/D5W 50 ML IV SCH (09:36)
[2020-06-20] MEDS: LACTOBACILLUS RHAMNOSUS GG 1 CAP CAPSULE GT SCH ×2 (09:37→21:00)
[2020-06-20] MEDS: FERROUS SULFATE 300 MG/5 ML UDC GT SCH (09:37)
[2020-06-20] MEDS: ASPIRIN 81 MG TAB.CHEW GT SCH (09:37)
[2020-06-20] MEDS: RILUZOLE 50 MG TABLET GT SCH ×2 (09:37→21:00)
[2020-06-20] MEDS: ASCORBIC ACID 500 MG TABLET GT SCH (09:37)
[2020-06-20] MEDS: LANSOPRAZOLE 30 MG CAPSULE.DR GT SCH (09:37)
[2020-06-20] MEDS ORDERED: SOD FERRIC GLUC COMPLEX/SUC 125 MG in NS 100 ML IV SCH (17:30)
[2020-06-20] MEDS: SOD FERRIC GLUC COMPLEX/SUC 125 MG in NS 100 ML IV SCH (17:44)
[2020-06-20] MEDS: MELATONIN 3 MG TABLET GT SCH (21:00)
[2020-06-21] VITALS (14 sets, daily range): BP systolic 125–158
[2020-06-21] MEDS: INSULIN NPH 100 UNITS/ML 10 ML VIAL SUBCUT SCH (06:41)
[2020-06-21] MEDS: BUDESONIDE 0.5 MG/2 ML AMPUL.NEB INH SCH (07:44)
[2020-06-21] MEDS: TOBRAMYCIN 300MG/5ML INH AMPUL.NEB INH SCH (07:44)
[2020-06-21 08:13] LABS: BASOPHILS # (AUTO) 0.1 K/uL (0.0-0.2); BASOPHILS % (AUTO) 1.2 % (0.0-2.0); EOSINOPHILS # (AUTO) 0.3 K/uL (0.0-0.4); EOSINOPHILS % (AUTO) 3.1 % (0.0-4.0); HEMATOCRIT 25.4 % (36-54); HEMOGLOBIN 8.2 g/dL (14.0-18.0); LYMPHOCYTES # (AUTO) 0.6 K/uL (1.0-5.5); LYMPHOCYTES % (AUTO) 6.9 % (20.5-51.5); MEAN CORPUSCULAR HEMOGLOBIN 28 pg (27-31); MEAN CORPUSCULAR HGB CONC 32 % (32-36); MEAN CORPUSCULAR VOLUME 88 fL (79.0-98.0); MONOCYTES # (AUTO) 0.5 K/uL (0.0-1.0); MONOCYTES % (AUTO) 5.8 % (1.7-9.3); PLATELET COUNT (AUTO) 196 K/uL (130-430); RED CELL DISTRIBUTION WIDTH 18.2 % (9.0-15.0); WHITE BLOOD COUNT (AUTO) 8.5 K/uL (4.8-10.8)
[2020-06-21 08:50] LABS: ALANINE AMINOTRANSFERASE 37 U/L (12-78); ALBUMIN 1.6 g/dL (3.4-4.8); ANION GAP 4 (5-15); ASPARTATE AMINOTRANSFERASE 19 U/L (10-37); CALCIUM 8.5 mg/dL (8.4-11.0); CHLORIDE 110 mmol/L (98-107); CREATININE 0.71 mg/dL (0.55-1.30); GLUCOSE 114 mg/dL (70-99); SODIUM SERUM 145 mmol/L (136-145); TOTAL BILIRUBIN 0.6 mg/dL (0.0-1.0); UREA NITROGEN, BLOOD 44 mg/dL (8-21)
[2020-06-21] MEDS: ASPIRIN 81 MG TAB.CHEW GT SCH (09:51)
[2020-06-21] MEDS: LACTOBACILLUS RHAMNOSUS GG 1 CAP CAPSULE GT SCH (09:51)
[2020-06-21] MEDS: LANSOPRAZOLE 30 MG CAPSULE.DR GT SCH (09:51)
[2020-06-21] MEDS: ASCORBIC ACID 500 MG TABLET GT SCH (09:51)
[2020-06-21] MEDS: LEVOFLOXACIN 250 MG/D5W 50 ML IV SCH (09:51)
[2020-06-21] MEDS: FERROUS SULFATE 300 MG/5 ML UDC GT SCH (09:51)
[2020-06-21] MEDS: ACETAMINOPHEN 650 MG/20.3 ML UDC GT PRN (09:52)
[2020-06-21] MEDS: RILUZOLE 50 MG TABLET GT SCH (09:53)
== END 2020-06-21 10:50 | DRG 870 ==
LOC: SED 18:02 → SIC 19:55
PROVIDERS: ADMIT Family Medicine; ATTEND Family Medicine
PROC: 5A1955Z Respiratory Ventilation, Greater than 96 Consecutive Hours (ICD-10-PCS; principal; 2020-06-11)
PROC: 06HY33Z Insertion of Infusion Device into Lower Vein, Percutaneous Approach (ICD-10-PCS; 2020-06-11)
PROC: B54BZZA Ultrasonography of Right Lower Extremity Veins, Guidance (ICD-10-PCS; 2020-06-11)
PROC: 30233N1 Transfusion of Nonautologous Red Blood Cells into Peripheral Vein, Percutaneous Approach (ICD-10-PCS; 2020-06-13)
DX: A41.9 Sepsis, unspecified organism (principal); R65.21 Severe sepsis with septic shock; G82.50 Quadriplegia, unspecified; J15.1 Pneumonia due to Pseudomonas; J96.21 Acute and chronic respiratory failure with hypoxia; N17.9 Acute kidney failure, unspecified; J44.0 Chronic obstructive pulmonary disease with (acute) lower respiratory infection; Z99.11 Dependence on respirator [ventilator] status; G12.21 Amyotrophic lateral sclerosis; E87.0 Hyperosmolality and hypernatremia; N39.0 Urinary tract infection, site not specified; G93.40 Encephalopathy, unspecified; I42.9 Cardiomyopathy, unspecified; Z16.19 Resistance to other specified beta lactam antibiotics; Z16.24 Resistance to multiple antibiotics; Z20.822 Contact with and (suspected) exposure to COVID-19; E86.0 Dehydration; D64.9 Anemia, unspecified; R13.10 Dysphagia, unspecified; E87.5 Hyperkalemia; E11.65 Type 2 diabetes mellitus with hyperglycemia; Y95 Nosocomial condition; Z79.82 Long term (current) use of aspirin; Z79.4 Long term (current) use of insulin; Z79.899 Other long term (current) drug therapy; Z86.14 Personal history of Methicillin resistant Staphylococcus aureus infection; Z86.73 Personal history of transient ischemic attack (TIA), and cerebral infarction without residual deficits; Z87.01 Personal history of pneumonia (recurrent); Z93.0 Tracheostomy status; Z93.1 Gastrostomy status
CPT/HCPCS: 36415; 36600; 71045; 80048; 80053; 80202-TC; 81000-TC; 82272; 82550-TC; 82803-TC; 82962; 83540-TC; 83550-TC; 83605; 83735-TC; 83880; 84484; 85007; 85025; 85027; 85610-TC; 85730-TC; 86710; 86886; 86900; 86901; 86920; 87040-TC; 87070-TC; 87081; 87086; 87205-TC; 93005; 94002; 94003; 94640; 96361; 96365; 96366; 96367; 96375; 99291; C1751; J1450; J1815; J1940; J1956; J2543; J2916; J3260; J3370; J7030; J7040; J7042; J7050; J7060; J7626; P9021; P9046